=== PATIENT | female | born 1950 | race Caucasian/White ===

== ENCOUNTER 2020-02-08 12:41 | Day surgery (SDC) | payer MEDICARE, BC ==
[~2020-02-08] VITALS: Ht 162.6 cm; Wt 66.4 kg
[~2020-02-08 12:41] MED LIST: ASPIRIN EC81 MG PO; ATENOLOL50 MG PO; BACLOFEN10 MG PO; CARAFATE1 GM PO; CHLORZOXAZONE500 MG PO; CITRUCEL500 MG PO; COLESTIPOL HCL1 GM PO; FIBER0.52 GM; FISH OIL OMEGA1 EACH PO; FLUOXETINE HCL20 MG PO; LISINOPRIL20 MG PO; METOPROLOL SUCC50 MG PO; NORCO 5-325 TA1 EACH PO; OMEPRAZOLE20 MG PO; ULTRAM50 MG PO; VENTOLIN HFA18 GM INH; WOMEN'S DAILY1 EAC1 PO; ZOFRAN4 MG PO
--- NOTE | 2020-02-08 15:56 | NUR ---
02/08/20 1556 Danisha Hernández 1550 PATIENT ARRIVES TO PACU AWAKE, BUT DROWSY. RESP EVEN AND UNLABORED, ROOM AIR SATS >90%. DENIES PAIN OR NAUSEA.
--- NOTE | 2020-02-09 08:31 | OR ---
[facility] [address] [place], [place] [address] Signed DATE OF OPERATION: 02/08/2020 SURGEON: Natalia Mills MD PREOPERATIVE DIAGNOSES: 1. Vague upper abdominal pain, cramps, bloating. 2. Diarrhea and abdominal cramping. POSTOPERATIVE DIAGNOSES: 1. Upper endoscopy with hiatal hernia, but without esophagitis. 2. Gastric polyps, likely related to chronic PPI use. 3. Mild gastritis. 4. Normal-appearing colon. PROCEDURES: 1. Esophagogastroduodenoscopy with biopsy. 2. Total colonoscopy to cecum with biopsies. ANESTHESIA: Intravenous sedation, fentanyl 150 mcg and Versed 7 mg (total). INDICATIONS: This 70-year-old white woman has abdominal bloating, upper abdominal pain, nonfocal as well as diarrhea. She is not currently having rectal bleeding. She has previously had a peptic ulcer. She has had cholecystectomy. She has taken PPI medication and is listed as taking it currently, though she denies taking it recently. She did have some improvement with Pepto-Bismol. She is here to undergo colonoscopy and upper endoscopy to better characterize the problem. FINDINGS: Upper endoscopy showed a hiatal hernia, but no esophagitis per se. She had some gastric polyps, likely related to use of PPI medication. There was some bile in the stomach, but not a lot. The duodenum was normal. CLOtest was negative 30 minutes post procedure. On colonoscopy, the prep was quite good. Complete colonoscopy was undertaken of the cecum. There was no sign of polyp or diverticular formation. Biopsies were obtained to assess for occult colitis. DESCRIPTION OF PROCEDURE: Electronically Signed By: NATALIA MILLS MD 02/09/20 0831 PATIENT NAME: MARCE STRONG OPERATIVE REPORT DATE OF : 46 REPORT #: [id number] PHYSICIAN: NATALIA MILLS MD PCP: WEN HANSEN REPORT IS CONFIDENTIAL AND NOT TO BE RELEASED WITHOUT AUTHORIZATION [facility] [address] [place], [place] [address] Signed The patient was brought to the endoscopy suite, given topical Hurricaine spray hypopharyngeal anesthesia and placed in lateral decubitus position, given intravenous sedation to the point of slurred speech and nystagmus. A bite block was placed. An Olympus video upper endoscope passed into the hypopharynx. The vocal cords were normal. Scope was advanced to the esophagus throughout its length, it appeared normal. There was no stricture or Garza's, no neoplasm, no varices. The scope was advanced to the stomach, which was insufflated with air. Rugal folds were normal. There were numerous small gastric polyps throughout the stomach, most dominantly in the more proximal stomach. The antrum was reasonably normal, there was some bilious fluid. The pylorus was normal. Scope was passed through into the duodenum. Biopsies were obtained of the distal duodenum and the bulbar portion, there was no sign of erosion or ulcer or other problem. The scope was withdrawn. Biopsies taken of the antrum and more proximal stomach for both WAQAR and pathologic testing. Retroflexed view showed a small hiatal hernia. Scope was withdrawn. Biopsies taken of the distal esophagus. Careful withdrawal of scope showed no other findings. The table was rotated and additional sedation given. Digital rectal examination was performed, which was normal. An Olympus video colonoscope was passed into the rectum and manipulated throughout the colon showing no sign of abnormalities. Scope was ultimately passed to the cecum. Ileocecal valve and appendiceal orifice were normal. Biopsies were taken of the cecum to rule out occult colitis. The scope was then withdrawn, examination throughout showed no sign of polyps, diverticular formation, colitis, or cancer. Biopsies were also taken of the rectum. Retroflexed view was normal except for some internal hemorrhoidal change and scarring. The scope was straightened, withdrawn, and removed. The patient was taken to the recovery room in good condition. CONCLUDING DIAGNOSIS: Uncertain etiology of abdominal pain. The has known carotid stenosis, which is being monitored. The possibility of ischemic gut in a chronic way is a consideration in her case. Consideration will be made for CT angio of the abdomen, also an arterial and venous phase to visualize the pancreas to assure there is no sign of neoplasm or other problem in that regard. We will see her back in followup after this study can be obtained and review her pathology reports. Natalia Mills MD Electronically Signed By: NATALIA MILLS MD 02/09/20 0831 PATIENT NAME: MARCE STRONG OPERATIVE REPORT DATE OF : 46 REPORT #: [id number] PHYSICIAN: NATALIA MILLS MD PCP: WEN HANSEN REPORT IS CONFIDENTIAL AND NOT TO BE RELEASED WITHOUT AUTHORIZATION [address] [address] Signed /BLANCA /[id number] cc: DALIA Carroll Copies: WEN HANSEN ~ Electronically Signed By: NATALIA MILLS MD 02/09/20 0831 PATIENT NAME: MARCE STRONG OPERATIVE REPORT DATE OF : 46 REPORT #: [id number] PHYSICIAN: NATALIA MILLS MD PCP: WEN HANSEN REPORT IS CONFIDENTIAL AND NOT TO BE RELEASED WITHOUT AUTHORIZATION
--- NOTE | 2020-02-10 16:55 | PATH ---
[facility] [address] [facility] [place], [place] [address] Signed SPECIMEN(S): A DUODENUM SPECIMEN(S): B DUODENUM BULB SPECIMEN(S): C ANTRUM/PYLORUS SPECIMEN(S): D STOMACH POLYP SPECIMEN(S): E LOWER ESOPHAGUS SPECIMEN(S): F CECUM SPECIMEN(S): G SIGMOID SPECIMEN(S): H RECTUM SPECIMEN SOURCE: A. DUODENUM B. DUODENUM BULB C. ANTRUM/PYLORUS D. STOMACH POLYP E. LOWER ESOPHAGUS F. CECUM G. SIGMOID H. RECTUM CLINICAL HISTORY: Diarrhea, abdominal pain, abdominal bloating. Post-op: Hiatal hernia, mild gastritis, normal colon. EGD, colonoscopy. MICROSCOPIC DESCRIPTION: Histologic sections of all submitted blocks are examined by light microscopy. These findings, together with the gross examination, support the pathologic diagnosis. FINAL PATHOLOGIC DIAGNOSIS: A. Duodenum, biopsy: - Duodenal mucosa with mild mucosal capillary congestion. - Negative for dysplasia or malignancy. B. 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 - Negative for Helicobacter organisms. - Negative for dysplasia or malignancy. C. Stomach, antrum/pylorus, biopsy: - Antral mucosa with chronic, inactive gastritis. - Negative for Helicobacter organisms. - Negative for dysplasia or malignancy. D. Stomach, polyp, polypectomy: - Fundic gland polyp. PATIENT NAME: MARCE STRONG PATHOLOGY DATE OF : 46 REPORT #: [id number] PHYSICIAN: CORINA ROSENTHAL PCP: WEN HANSEN REPORT IS CONFIDENTIAL AND NOT TO BE RELEASED WITHOUT AUTHORIZATION [facility] [address] [place], [place] [address] Signed E. Esophagus, lower, biopsy: - Squamous mucosa with mild reactive changes. - Negative for intestinal metaplasia, dysplasia, or malignancy. F. Colon, cecum, biopsy: - Colonic mucosa with no histopathologic abnormality. - Negative for active, chronic, or microscopic colitis. - Negative for dysplasia or malignancy. G. Colon, sigmoid, biopsy: - Colonic mucosa with no histopathologic abnormality. - Negative for active, chronic, or microscopic colitis. - Negative for dysplasia or malignancy. H. Rectum, biopsy: - Rectal mucosa with no histopathologic abnormality. - Negative for active or chronic proctitis. - Negative for dysplasia or malignancy. COMMENT: Regarding specimens B and C: H. pylori immunohistochemical stains (with appropriately staining controls) were performed and are negative for Helicobacter organisms. NAL:cml:C2NR GROSS DESCRIPTION: Eight specimens are received in eight containers, labeled "BD." A. The specimen, labeled "BD, duodenum biopsy," is received in formalin and consists of two young soft tissue fragments that measure 0.2 cm in greatest dimension. The specimen is entirely submitted in cassette (A1). B. The specimen, labeled "BD, duodenal bulb biopsy," is received in formalin and consists of two young soft tissue fragments that measure 0.1 cm in greatest dimension. The specimen is entirely submitted in cassette (B1). C. The specimen, labeled "BD, antrum biopsy," is received in formalin and consists of two young soft tissue fragments that measure 0.1-0.2 cm in greatest dimension. The specimen is entirely submitted in cassette (C1). D. The specimen, labeled "BD, stomach polyp," is received in formalin and consists of one young soft tissue fragment that measures 0.2 cm in greatest dimension. The specimen is entirely submitted in cassette (D1). PATIENT NAME: MARCE STRONG PATHOLOGY DATE OF : 46 REPORT #: [id number] PHYSICIAN: CORINA ROSENTHAL PCP: WEN HANSEN REPORT IS CONFIDENTIAL AND NOT TO BE RELEASED WITHOUT AUTHORIZATION [facility] [address] [place], [place] [address] Signed E. The specimen, labeled "BD, lower esophagus biopsy," is received in formalin and consists of two young soft tissue fragments that measure 0.2-0.3 cm in greatest dimension. The specimen is entirely submitted in cassette (E1). F. The specimen, labeled "BD, cecum biopsy," is received in formalin and consists of one young soft tissue fragment that measures 0.3 cm in greatest dimension. The specimen is entirely submitted in cassette (F1). G. The specimen, labeled "BD, sigmoid colon biopsy," is received in formalin and consists of one young soft tissue fragment that measures 0.2 cm in greatest dimension. The specimen is entirely submitted in cassette (G1). H. The specimen, labeled "BD, rectum biopsy," is received in formalin and consists of two young soft tissue fragments that measure 0.1 cm in greatest dimension. The specimen is entirely submitted in cassette (H1). JS (under the direct supervision of a pathologist) The Gross Description was prepared using a voice recognition system. The report was reviewed for accuracy; however, sound-alike word errors, addition and/or deletions may occur. If there is any question about this report, please contact Client Services. ADDITIONAL NOTES: Immunohistochemical and/or in situ hybridization studies were performed on this case with the appropriate positive controls that react as expected. This test was developed and its performance characteristics determined by [facility]. It has not been cleared or approved by the U.S. Food and Drug Administration. The FDA has determined that such clearance or approval is not necessary. This test is used for clinical purposes. It should not be regarded as investigational or for research. [facility] is certified under the Clinical Laboratory Improvement Amendments of 1988 (CLIA) as qualified to perform high complexity clinical laboratory testing. PERFORMING LABORATORY: The technical component was performed by [facility] [address] (Website Optimization Strategist: Nancy Mckenzie MD; CLIA# [id number]). [facility] [address] [address] (CLIA# [id number]). PATIENT NAME: MARCE STRONG PATHOLOGY DATE OF : 46 REPORT #: [id number] PHYSICIAN: CORINA ROSENTHAL PCP: WEN HANSEN REPORT IS CONFIDENTIAL AND NOT TO BE RELEASED WITHOUT AUTHORIZATION [facility] [address] [place], [place] [address] Signed Diagnostician: Cammy Finch MD Pathologist Electronically Signed 02/10/2020 Copies: ~ PATIENT NAME: MARCE STRONG PATHOLOGY DATE OF : 46 REPORT #: [id number] PHYSICIAN: CORINA PATHOLOGY PCP: WEN HANSEN REPORT IS CONFIDENTIAL AND NOT TO BE RELEASED WITHOUT AUTHORIZATION
== END 2020-02-08 16:25 | disposition home or self-care (01) ==
LOC: DS 12:41 → OPS 12:41 → DS 14:00 → OPS 14:00
PROVIDERS: ATTEND Surgery
PROC: 0DB68ZX Excision of Stomach, Via Natural or Artificial Opening Endoscopic, Diagnostic (ICD-10-PCS; 2020-02-08)
PROC: 0DBH8ZX Excision of Cecum, Via Natural or Artificial Opening Endoscopic, Diagnostic (ICD-10-PCS; 2020-02-08)
PROC: 0DBP8ZX Excision of Rectum, Via Natural or Artificial Opening Endoscopic, Diagnostic (ICD-10-PCS; 2020-02-08)
PROC: 0DB98ZX Excision of Duodenum, Via Natural or Artificial Opening Endoscopic, Diagnostic (ICD-10-PCS; principal; 2020-02-08 14:00)
PROC: 0DB78ZX Excision of Stomach, Pylorus, Via Natural or Artificial Opening Endoscopic, Diagnostic (ICD-10-PCS; 2020-02-08 14:00)
DX: R10.13 Epigastric pain (principal); K31.89 Other diseases of stomach and duodenum; K29.50 Unspecified chronic gastritis without bleeding; K64.8 Other hemorrhoids; K44.9 Diaphragmatic hernia without obstruction or gangrene; K31.7 Polyp of stomach and duodenum; K21.9 Gastro-esophageal reflux disease without esophagitis; R19.7 Diarrhea, unspecified; I10 Essential (primary) hypertension; E78.5 Hyperlipidemia, unspecified; F41.9 Anxiety disorder, unspecified; I25.10 Atherosclerotic heart disease of native coronary artery without angina pectoris; F32.9 Major depressive disorder, single episode, unspecified; Z79.82 Long term (current) use of aspirin; Z79.899 Other long term (current) drug therapy; Z87.891 Personal history of nicotine dependence; Z87.11 Personal history of peptic ulcer disease; Z90.49 Acquired absence of other specified parts of digestive tract
CPT/HCPCS: 88305; 88341; 88342; 99153; G0500; J2250; J3010

== ENCOUNTER 2020-08-17 08:59 | Emergency (ER) | payer MEDICARE, BC ==
[~2020-08-17] VITALS: Ht 162.6 cm; Wt 66.2 kg
--- OUTSIDE RECORDS SUMMARY | 2020-08-17 09:30 | XMS ---
PreManage Notification: MARCE STRONG Security Junior Copywriter Events No recent Security Events currently on file [facility] There are no care providers on record at this time. Nidhi has no Care Guidelines for this patient. Sarah VISIT COUNT (12 MO.) 1 AMY [facility] TOTAL 1 NOTE: Visits indicate total known visits. ED/C VISIT TRACKING (12 MO.) 08/17/2020 09:00 [facility] [place] TYPE: Emergency COMPLAINT: - LOWER BACK PAIN INPATIENT VISIT TRACKING (12 MO.) No inpatient visits to display in this time frame [email or web address]
[2020-08-17] MEDS ORDERED: CLOPIDOGREL75 MG PO (10:22)
[2020-08-17] MEDS ORDERED: LIDODERM1 EACH TD (10:42)
[2020-08-17] MEDS ORDERED: NAPROSYN500 MG PO (10:42)
[2020-08-17] MEDS ORDERED: ATIVAN1 MG PO (10:42)
== END 2020-08-17 11:05 | disposition home or self-care (01) ==
LOC: ED 08:59
DX: S39.012A Strain of muscle, fascia and tendon of lower back, initial encounter (principal); X50.0XXA Overexertion from strenuous movement or load, initial encounter; E78.00 Pure hypercholesterolemia, unspecified; I10 Essential (primary) hypertension; Z87.891 Personal history of nicotine dependence; Z79.899 Other long term (current) drug therapy; Z79.82 Long term (current) use of aspirin
CPT/HCPCS: 72100; 96372; 99283-25; A9270-GY; J1885

== ENCOUNTER 2022-05-16 11:10 | Emergency (ER) | payer MEDICARE, BC ==
[~2022-05-16] VITALS: Ht 162.6 cm; Wt 69.0 kg
[~2022-05-16 11:10] MED LIST changes: +ATIVAN1 MG PO; +CLOPIDOGREL75 MG PO; +HYDROCODON-ACE1 EA11 PO; +LIDODERM1 EACH TD; +NAPROSYN500 MG PO
--- OUTSIDE RECORDS SUMMARY | 2022-05-16 11:12 | XMS ---
PreManage Notification: MARCE STRONG Security Building Performance Specialist Events No recent Security Events currently on file CRITERIA MET - [facility] CARE PROVIDERS WEN HASNEN Physician Corporate Controller 08/21/2020-Current PHONE: Unknown Nidhi has no Care Guidelines for this patient. aSrah VISIT COUNT (12 MO.) 1 AMY [place] TOTAL 1 NOTE: Visits indicate total known visits. ED/UCC VISIT TRACKING (12 MO.) 05/16/2022 11:11 [facility] [place] TYPE: Emergency COMPLAINT: - LOW B/P INPATIENT VISIT TRACKING (12 MO.) No inpatient visits to display in this time frame [email or web address]
== END 2022-05-16 14:05 | disposition home or self-care (01) ==
LOC: ED 11:10
DX: N17.9 Acute kidney failure, unspecified (principal); E86.0 Dehydration; I10 Essential (primary) hypertension; E78.00 Pure hypercholesterolemia, unspecified; Z87.891 Personal history of nicotine dependence; Z79.899 Other long term (current) drug therapy; Z79.02 Long term (current) use of antithrombotics/antiplatelets; Z79.82 Long term (current) use of aspirin
CPT/HCPCS: 36415; 80053; 85025; 99284; J7030

== ENCOUNTER 2022-10-11 06:22 | Day surgery (SDC) | payer MEDICARE, BC ==
[2022-10-08 16:15] VITALS: BP 120/65
--- NOTE | 2022-10-08 16:39 | NUR ---
PT DR DANIELSON PT TO STOP ASA AND PLAVIX W. PT IS AWARE.
[~2022-10-11] VITALS: Ht 162.6 cm; Wt 67.3 kg
[~2022-10-11 06:22] MED LIST changes: -ASPIRIN EC81 MG PO; +BAYER CHEWABLE81 MG PO
[2022-10-11 06:39] VITALS: BP 130/55
[2022-10-11] MEDS ORDERED: HYDROCODON-ACE1 EA10 PO (08:03)
--- NOTE | 2022-10-11 08:06 | NUR ---
10/11/22 0806 Margot Page 0801 PT TO PACU SLEEPING O2 AT 6L VIA MASK FOGGING NOTED IN MASK.
--- NOTE | 2022-10-11 08:25 | NUR ---
PT ARRIVES TO UNIT VIA STRETCHER FROM PACU. REPORT RECEIVED FROM COREY MCCLELLAN. PT REPORTS PAIN MINIMAL AT 1 OR 2/10 AT THIS TIME AND STATES NO NEED FOR PRN PAIN MEDS AT THIS TIME. PT REPORTS NO NAUSEA, DIZZINESS, N/T, OR SOB. VS TAKEN, PT ON RA AT THIS TIME W/RR EVEN AND UNLABORED, NO SIGNS OF DISTRESS. SURGICAL SITE HAS SMALL AMOUNT OF SS DRAINAGE, SKIN IS PINK/WARM/DRY, CAP REFILL <3 SEC, ICE IN PLACE. PT TOLERATING SMALL SIPS OF ICE WATER AND APPLESAUCE/CRACKERS AT THIS TIME. AT BEDSIDE, PT IS A&O X4. CALL LIGHT WITHIN REACH, NO FURTHER NEEDS AT THIS TIME.
[2022-10-11 08:29] VITALS: BP 125/47
[2022-10-11 09:13] VITALS: BP 119/49
--- NOTE | 2022-10-11 09:30 | NUR ---
IN PT ROOM FOR ASSESSMENT AND VS. PT VOIDS 150 ML CLEAR/YELLOW URINE. PT NOW BACK IN ROOM GETTING DRESSED W/'S ASSISTANCE. DISCHARGE EDUCATION PROVIDED. PT STATES NO FURTHER QUESTIONS OR NEEDS AT THIS TIME AND STATES VERBAL UNDERSTANDING. PT OFF OF UNIT VIA WC TO PASSENGER SEAT OF 'S VEHICLE. ALL BELONGINGS IN PT POSSESSION AT THIS TIME. WOUND REMAINS SMALL AMOUNT OF SS DRAINAGE, DRESSING INTACT. PT STATES NO FURTHER NEEDS AT THIS TIME.
--- NOTE | 2022-10-11 10:56 | NUR ---
PT IN BED. DENIED NEEDS. PRAYED.
--- NOTE | 2022-10-12 06:15 | EKG ---
[facility] [address] [facility] [place], [place] [address] Signed Normal sinus rhythm Normal ECG When compared with ECG of 07-MAY-2022 15:28, No significant change was found Confirmed by ALAN BELLAMY MD ([id number]) on 10/12/2022 6:15:30 AM Electronically Signed By: ALAN BELLAMY 10/12/22 0615 PATIENT NAME: MARCE STRONG JAMES Electrocardiogram DATE OF : 46 PHYSICIAN: ALAN BELLAMY REPORT #: [id number] REPORT IS CONFIDENTIAL AND NOT TO BE RELEASED WITHOUT AUTHORIZATION
--- NOTE | 2022-10-14 08:44 | OR ---
[facility] [address] [place], [place] [address] Signed DATE OF OPERATION: 10/11/2022 SURGEON: Angelica Page MD PREOPERATIVE DIAGNOSIS: Medial meniscus tear/lateral meniscus tear, right knee. POSTOPERATIVE DIAGNOSIS: Medial meniscus tear/lateral meniscus tear, right knee. PROCEDURE PERFORMED: Right knee arthroscopy with partial, lateral and medial meniscectomies. CHILD PROTECTIVE SERVICES SOCIAL WORKER: None. ANESTHESIA: General. BLOOD LOSS: Minimal. BRIEF HISTORY: Preethi is a 72-year-old female with progressive worsening of pain and giving out of her knee. MRI was consistent with a large meniscus tear and moderate arthritis. Risks and benefits of operative treatment due to the mechanical symptoms were discussed with her and she elected to proceed. Once consent was obtained, she was taken to the operating room. After adequate anesthesia, she was placed on the operating room table. Left leg was flexed abducted and externally rotated on a well-padded leg salazar. The right was placed in a well-padded proximal thigh leg salazar and prepped and draped in a standard sterile fashion. The portal sites were injected with 0.25% Marcaine with epinephrine and the standard inferolateral and superolateral portals were made. The scope was introduced in the knee. ARTHROSCOPIC FINDINGS: The knee has a significant synovitis throughout. 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 Medial and lateral gutters were clear. ACL and PCL were intact. 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 There was a complex degenerative tear extending from the anterior medial corner all way posteriorly. The lateral compartment showed a Electronically Signed By: ANGELICA PAGE MD 10/14/22 0844 PATIENT NAME: PREETHI STRONG OPERATIVE REPORT DATE OF : 46 REPORT #: [id number] PHYSICIAN: ANGELICA PAGE MD PCP: WEN HANSEN REPORT IS CONFIDENTIAL AND NOT TO BE RELEASED WITHOUT AUTHORIZATION [facility] [address] [place], [place] [address] Signed degenerative tear from mid lateral body all the way to the posterior horn. The chondromalacia on the lateral side was grade 2-3 in the femoral condyle and grade 2 on the tibia. DESCRIPTION OF OPERATION: Standard inferomedial portal was established using a spinal needle for localization. The straight and curved biters were then used to trim both meniscus tears back to a stable rim. These were then smoothed using the shaver and the edges feathered out. All debris was evacuated. Several chondral flaps on the medial femoral condyle were debrided at the same time. Once this was accomplished, the scope was withdrawn. Portals were closed with 3-0 nylon and the knee was injected with 60 mg of Toradol. The wounds were dressed with Adaptic, ABD and Cleve wrap. She tolerated the procedure well. All sponge, needle and instrument counts were correct. Angelica Page MD BA/BLANCAL /[id number] Copies: ~ Electronically Signed By: ANGELICA PAGE MD 10/14/22 0844 PATIENT NAME: LIGIAPREETHI OPERATIVE REPORT DATE OF : 46 REPORT #: [id number] PHYSICIAN: ANGELICA PAGE MD PCP: WEN HANSEN REPORT IS CONFIDENTIAL AND NOT TO BE RELEASED WITHOUT AUTHORIZATION
== END 2022-10-11 09:40 | disposition home or self-care (01) ==
LOC: DS 06:22
PROVIDERS: ATTEND Specialist
PROC: 0SBC4ZZ Excision of Right Knee Joint, Percutaneous Endoscopic Approach (ICD-10-PCS; 2022-10-11)
PROC: 0SBC4ZZ Excision of Right Knee Joint, Percutaneous Endoscopic Approach (ICD-10-PCS; principal; 2022-10-11 07:55)
DX: M23.331 Other meniscus derangements, other medial meniscus, right knee (principal); M23.351 Other meniscus derangements, posterior horn of lateral meniscus, right knee; M65.9 Synovitis and tenosynovitis, unspecified; M22.41 Chondromalacia patellae, right knee
CPT/HCPCS: 93005; 93010; J0690; J1885; J2001; J2405; J2704; J3490; J7121